=== PATIENT | male | born 1980 | race Hispanic/Latino ===

== ENCOUNTER 2022-03-25 21:24 | Emergency (ER) | payer OTHER ==
[2022-03-25] MEDS ORDERED: CYCLOBENZAPRINE5 MG PO (21:36)
[2022-03-25] MEDS ORDERED: NAPROSYN500 MG PO (21:36)
[2022-03-25] MEDS ORDERED: KETOROLAC TROMETHAMINE 60 MG/2 ML VIAL IM ONE (21:45)
== END 2022-03-25 21:55 | disposition home or self-care (01) ==
LOC: ER 21:27
DX: M54.50 Low back pain, unspecified (principal); G89.29 Other chronic pain; M41.9 Scoliosis, unspecified; F17.210 Nicotine dependence, cigarettes, uncomplicated
CPT/HCPCS: 99282; J1885